=== PATIENT | male | born 1945 | race Caucasian/White ===

== ENCOUNTER → 2016-10-15 | Outpatient (CLI) | payer OTHER ==
[~2016-10-15] VITALS: Ht 172.7 cm; Wt 96.6 kg
[~2016-10-15] MED LIST: ALBUTEROL0.63 MG/3 IH; ARICEPT 5 MG TAB5 MG PO; ENOXAPARIN100 MG/11 SUBQ; FENTANYL PA25 MCG/HR TRANSDERM; FLOMAX0.4 MG PO; LIPITOR10 MG PO; LOPERAMIDE 2 MG2 M1 PO; LOPRESSOR50 PO; METFORMIN HCL500 MG PO; NEURONTIN 300300 M1 PO; NORCO 10-325 T1 EACH PO; OMEPRAZOLE20 M2 PO; ROPINIROLE HCL2 MG PO; SEROQUEL 50 MG50 MG PO; STRIVERDI RESPIM4 GM IH; TESSALON PERLE100 MG PO; TUSNEL LIQUID3840 ML PO; UNICOMPLEX M TA1 TA1 PO; VITAMIN D1000 UNI1 PO; ZOLOFT100 MG PO
--- NOTE | ~2016-10-15 | HPC ---
[facility] [address] [place] [address] PAIN MANAGEMENT CONSULTATION Name: CLAUDE ZHU Room #: REG ABDOUL De Anda#: [id number] Admission: 10/15/16 Attend Phys: Harjeet Solares DO Discharge: Date of : 43 Report #: [id number] THIS REPORT FOR: //name// CC: ALESSANDRO Solares HISTORY OF PRESENT ILLNESS: The patient is a pleasant, yet unfortunate 70-year-old gentleman seen in consultation at the request of Dr. Jackson for assistance with management of acute and chronic pain concerns including back and right leg as well as possible metastatic pulmonary cancer pain issues. The patient has had chronic back pain for number of years. He unfortunately fell about 7 weeks ago sustaining fracture of the right mid foot, Lisfranc type injury. They briefly discussed surgery, but given comorbidities elected to simply treat without mobilization. He has a right lower extremity walking cast on presently. He has been taking hydrocodone for axial back pain 5/325 and Robaxin for some time. Following the most recent fracture, dose has been escalated to hydrocodone 10/325 2 tablets 4 times a day (equivalent 80 mg of morphine). Unfortunately, even with this, he still has pain that is 6 to 10 on a 0-10 visual analog scale, primary pain in the back as well as right leg. Concurrently with this patient was diagnosed in May with stage IV pulmonary carcinoma. He is essentially on palliative care at present. He had trialled initial chemotherapy with profound bone marrow depression. He said 3 treatments with Keytruda. He has been told he has a short-term to live. He is at terms with this though he does suffer from some situational and expected anxiety and depression. He has wisely decided to eschew any heroic efforts he is a DNR and wishes for palliative care presently. He is interested in continuing the Keytruda treatments to try and prolong any quality of life he may have. He states pain is exacerbated when he does his breathing exercises (primarily back pain). Describes continuous constant aching pain again rates anywhere from 6 to 10 on a 0-10 visual analog scale. The patient has smoked for 40 years and at this point, he is simply elected to continue smoking, does not drink alcohol to excess. He is , seen in the company of of 40+ years, who is very supportive. History of diabetes, treated with metformin, pulmonary disease uses albuterol and Tessalon Perles for pertussis, metoprolol for hypertension, history of coronary artery disease. Omeprazole for gastroesophageal reflux, tamsulosin for benign prostatic hypertrophy, does have some dyslipidemia for which he currently takes atorvastatin. He has been on donepezil for early Alzheimer's for 2 or 3 years. He has been on sertraline and Seroquel for chronic anxiety and depression for many years. Has some posttraumatic stress issues from [place]. He states he was injured in [place], where he served from 1967 to 1968, had a back injury at [address] [address] PAIN MANAGEMENT CONSULTATION Name: CLAUDE ZHU Room #: EDILIA De Anda#: [id number] Admission: 10/15/16 Attend Phys: Harjeet Solares DO Discharge: Date of : 43 Report #: [id number] that time, which was the dorys of his initial back pain. The patient has been retired for the past 15 years. He has been fairly non-functional since the foot fractured 6 weeks ago. Pain impact score is 43/70. PHYSICAL EXAMINATION: GENERAL: Reveals a pleasant 5 feet 8 inches, 213 pound gentleman. BMI is 32.4 kilograms per meter squared. VITAL SIGNS: Blood pressure 148/71, pulse is 68, respirations 16, oxygen saturation is 94%. GENERAL: Alert and oriented to person, place and time, judged to be a reasonable historian. Short term memory appears good. He is assisted with his for more details. HEENT: Pupils equal, reactive to light and accommodation. Extraocular muscles are intact. NECK: Thyroid is modestly enlarged, no nodules are noted. Upper extremity strength is preserved. Cervical range of motion is good. LUNGS: Show rhonchi bilaterally. HEART: Regular and rhythmical at this time. ABDOMEN: Shows a modestly endomorphic build. EXTREMITIES: Left lower extremity strength is 3-4/5 to all muscle groups tested. Again, wearing a right lower extremity walking cast. He is in a wheelchair and states he spends most of his time in the wheelchair. He is able to transfer with assistance, has a bedside commode. Right leg shows diminished strength to hip flexion, lower extremity extension. Some diffuse tenderness across the low back. No discrete trigger points are noted. ASSESSMENT: Chronic pain syndrome requiring complex medication management, axial back pain, metastatic lung cancer and now right Lisfranc mid foot injury. RECOMMENDATIONS: Long discussion with the patient and his today about trying to manage palliative care concerns both presently and down the road. He is taking gabapentin 300 mg 2 in the morning, 1 at noon and 1 at bedtime for neuropathic pain, uses Requip for restless leg 2 mg at bedtime, these seem reasonable. He is using fairly high dose short acting opiate, 20 mg of hydrocodone 4 times a day with dwindling efficacy. We elected to start a long acting opiate, will trial a transcutaneous patch such that if the patient starts to have any nausea secondary to future chemotherapy, he will not face with an issue of acute opiate withdrawal compounding this situation We will start with Duragesic 25 mcg q. 72 hours. We will have him decrease p.r.n. hydrocodone to one tablet q. 4h., after patches in place about 12 hours (takes 8 to 12 hours for steady state drug level). I will see him back in about 3 weeks for reevaluation. We may increase the Duragesic patch and/or try rotating to Roxanol all for breakthrough pain. Continue gabapentin and Requip. [address] [address] PAIN MANAGEMENT CONSULTATION Name: CLAUDE ZHU Room #: REG ABDOUL De Anda#: [id number] Admission: 10/15/16 Attend Phys: Harjeet Solares DO Discharge: Date of : 44 Report #: [id number] Thank you for allowing me to participate in the patient's care. I will keep you abreast of his progress. <ELECTRONICALLY SIGNED> By: Harjeet Solares DO 10/17/16 0932 [id number] 0816 Harjeet Solares DO /nt
[2016-10-15 13:00] VITALS: BP 148/71
== END | disposition home or self-care (01) ==
LOC: PAIN 07:29
DX: G89.4 Chronic pain syndrome (principal); M54.9 Dorsalgia, unspecified; C34.90 Malignant neoplasm of unspecified part of unspecified bronchus or lung; I10 Essential (primary) hypertension; I50.9 Heart failure, unspecified; E11.9 Type 2 diabetes mellitus without complications; F32.9 Major depressive disorder, single episode, unspecified; S93.324A Dislocation of tarsometatarsal joint of right foot, initial encounter; Z90.49 Acquired absence of other specified parts of digestive tract; Z98.890 Other specified postprocedural states; X58.XXXA Exposure to other specified factors, initial encounter; Y93.89 Activity, other specified; Y92.89 Other specified places as the place of occurrence of the external cause; Y99.8 Other external cause status

== ENCOUNTER → 2016-11-08 | Outpatient (CLI) | payer OTHER ==
[~2016-11-08] VITALS: Ht 172.7 cm; Wt 99.3 kg
[~2016-11-08] MED LIST changes: +ZANAFLEX4 MG PO
--- NOTE | ~2016-11-08 | HPC ---
[facility] [place] [address] PAIN MANAGEMENT CONSULTATION Name: CLAUDE ZHU Room #: REG ABDOUL De Anda#: [id number] Admission: 11/08/16 Attend Phys: Harjeet Solares DO Discharge: Date of : 44 Report #: [id number] THIS REPORT FOR: //name// CC: SHAE Solares HISTORY OF PRESENT ILLNESS: The patient is a 71-year-old gentleman, prior seen in the pain clinic in consultation 10/15/2016. Diagnosed with chronic pain syndrome, requiring complex medication management, axial back pain, metastatic lung cancer with right Lisfranc mid foot injury. At last visit, we have elected to start the patient on Duragesic 25 mcg q. 72 hours. We elected to have him decrease his hydrocodone from 2 tablets to one tablet q. 4 hours. The patient returns to pain clinic today for a prolonged visit. He was seen from 12:30 to 13:03. Greater than 50% of this 30+ minute visit was spent in counseling the patient. The patient was seen in the company of his , who is supportive. She notes that they had difficulty getting the patches and ultimately, just started them one week ago. He has had the patch now for about a week and notes he has been able to decrease his hydrocodone use by 50%, now taking one tablet every 4-6 hours, averaging about 4 a day. Primary pain complaint is mid back pain, along with the right foot. He is wearing his right foot walking boot. Notes subjective pain score is 2/10, but the pain is quite problematic with any movement of the upper extremity, movement of the trunk, or bending. The foot pain remains problematic with weightbearing, though this is improving. PHYSICAL EXAMINATION: Shows a 71-year-old gentleman, BMI is 33.3 kilograms per meter squared. Vital signs are stable as noted on the EMR. Cranial nerves 2-12 are grossly intact. Alert and oriented, though modest cognitive delay. Very tender in the thoracolumbar paravertebral muscle. Spasm was noted. Rotation and sidebending seem to significantly exacerbate pain. Lower extremity strength is generally symmetric again is in the aforementioned right lower extremity, walking cast. We reviewed the fact that opiate medications are being used to provide analgesia adequate to support activities of daily living, not attempting to achieve a specific pain score on the 0-10 Visual Analog Scale. The current opiate medications are providing sufficient analgesia to allow the patient to participate in activities of daily living. The patient is not exhibiting any aberrant behavior suggestive of drug diversion. The patient is not having any adverse reactions to medications. The patient is not suffering from daytime somnolence or mental acuity changes. The patient is managing opiate-induced constipation with appropriate lmga-wfy-ewhypjt agents and dietary considerations. The patient was counseled on concern for caution with operating [address] [address] PAIN MANAGEMENT CONSULTATION Name: CLAUDE ZHU Room #: REG VIDHYAAlberto De Anda#: [id number] Admission: 11/08/16 Attend Phys: Harjeet Solares DO Discharge: Date of : 44 Report #: [id number] a motor vehicle while using opiate medications. A physical exam was performed and the patient's functional status was evaluated. All patients with back pain were advised against the bed rest greater than 4 days and were advised to return to normal activities. Pain score assessment was noted and the treatment plan was reviewed with the patient. All current medications, both prescribed and OTC were reviewed and reconciled on the electronic medical record. Tobacco screening was accomplished and smoking cessation was advised when indicated. BMI was noted and diet/exercise modification was recommended for all patients following outside normal parameters. I reviewed with the patient today their responsibilities to safeguard prescription medications, reviewed their responsibility to utilize medications only as prescribed by the physician. They are to seek and receive pain medications only from 1 physician group ( [facility]). They are to use 1 pharmacy and keep the clinic informed if they change pharmacies. Their responsibilities include making followup visits in a timely fashion and to avoid abrupt discontinuation of medication usage. Their responsibilities further include bringing their medications (bottles from the pharmacy with residual pills) to the visit for possible confirmation of pill counts and the patient understands it is their responsibility to submit to random drug screens to ensure both that the medications prescribed are present, and that no other controlled substances are present. All prescriptions provided today were generated electronically. ASSESSMENT: Metastatic lung cancer, axial back pain, myofascial pain component, status post right mid foot, Lisfranc injury, requiring complex medication management. RECOMMENDATION: 1. Continue baseline medication unchanged, Duragesic 25 mcg q. 72 hours and hydrocodone 10/325 one tablet up to 4 times a day. I have taken the liberty of renewing these 2 prescriptions. Given the axial back pain with palpable spasm, we have elected to start the patient on tizanidine 4 mg up to t.i.d. for spasm. We talked about doing trigger point injections today to these large muscle groups. The patient, however, does have a PET scan scheduled for tomorrow to monitor his metastatic pulmonary cancer. I have elected to defer interventional therapy at this time for fear of causing any possible "red seaman" changes on the PET scan. I will be happy to see the patient next week for trigger point injections, if pain remains problematic despite the initiation of the tizanidine. Discharged in good and stable condition after a prolonged visit. Follow up in [facility] [address] [place] [address] PAIN MANAGEMENT CONSULTATION Name: CLAUDE ZHU Room #: REG ABDOUL De Anda#: [id number] Admission: 11/08/16 Attend Phys: Harjeet Solares DO Discharge: Date of : 43 Report #: [id number] about 6 weeks to evaluate efficacy of medication or early next week for trigger point injections. By: [id number] Harjeet Solares DO /nt
[2016-11-08 12:52] VITALS: BP 131/79
== END | disposition home or self-care (01) ==
LOC: PAIN 07:03
DX: C34.90 Malignant neoplasm of unspecified part of unspecified bronchus or lung (principal); G89.29 Other chronic pain; M54.9 Dorsalgia, unspecified; Z98.890 Other specified postprocedural states; M79.1 Myalgia; F17.200 Nicotine dependence, unspecified, uncomplicated

== ENCOUNTER → 2016-12-07 | Outpatient (CLI) | payer OTHER ==
[~2016-12-07] VITALS: Ht 172.7 cm; Wt 83.6 kg
[~2016-12-07] MED LIST changes: +DURAGESIC1 EAC2 TD; +REGLAN 10 MG TA10 MG PO
--- NOTE | ~2016-12-07 | HPC ---
[facility] [address] [place] [address] PAIN MANAGEMENT CONSULTATION Name: CLAUDE ZHU Room #: REG ABDOUL De Anda#: [id number] Admission: 12/07/16 Attend Phys: Harjeet Solares DO Discharge: Date of : 44 Report #: [id number] THIS REPORT FOR: //name// CC: SHAE Solares HISTORY OF PRESENT ILLNESS: The patient is a very pleasant 71-year-old gentleman, being treated for chronic pain syndrome, axial back pain, history of lung cancer, metastatic; history of right foot fracture (Lisfranc, midfoot) requiring complex medication management. At last visit 11/08/2016, we had started the patient on a Duragesic patch at 25 mcg q.72 hours (prescriptions written for q.48 hours) as the patient has occasionally had trouble keeping patches on. He is using them q.72 hours, but occasionally he will lose the patch, and I did not want him to have opiate withdrawal (continuing hydrocodone 10/325 ostensibly one tablet 4 a day). I started tizanidine up to 4 times a day for muscle spasm. The patient had some myofascial pain with trigger points noted at last visit, though we elected to postpone interventional therapy i.e. trigger points as he was getting a PET scan subsequent, and we did not want to have any "red herrings" i.e. hot spot that would show up on bone scan, secondary to the trigger point injection. The patient returns to the pain clinic today, seen in the company of his , who is supportive. We did have a prolonged visit today, greater than 25 minutes was spent counseling the patient and his . Unfortunately, the PET scan did show tumors in both lungs. They are continuing with some chemotherapeutic agents with the understanding that they will not necessarily prolong his life, but hopefully keep him little more comfortable. He does note that the foot fracture is actually healing. Today is the first time I have seen him in a normal shoe. States his pain is actually generally well controlled, subjective pain score is about 2/10 at present. Chronic low back pain and again the aforementioned right ankle, which is getting better. Constant aching and crushing pain. He notes exercises, cold weather, and lying flat seem to exacerbate his back pain. PHYSICAL EXAMINATION: Shows a pleasant 71-year-old gentleman, BMI is 28 kilograms per meter squared. Vital signs are stable as noted on the electronic medical record. He has continued to smoke despite counseling. Further discussion with the patient and his today. The tizanidine t.i.d. caused significant sedation, although he is taking one at night, and this seems [facility] [address] [place] [address] PAIN MANAGEMENT CONSULTATION Name: CLAUDE ZHU Room #: REG ABDOUL De Anda#: [id number] Admission: 12/07/16 Attend Phys: Harjeet Solares DO Discharge: Date of : 43 Report #: [id number] to be efficacious. Unfortunately, he is still taking a fairly aggressive load of hydrocodone, averaging about 7 in a 24-hour period. Again, he has some axial back pain, no discrete trigger points are noted at this time. This is different than last visit. Lower extremity strength is diminished, but improving. He is able to ambulate still antalgic with the right foot. We reviewed the fact that opiate medications are being used to provide analgesia adequate to support activities of daily living, not attempting to achieve a specific pain score on the 0-10 Visual Analog Scale. The current opiate medications are providing sufficient analgesia to allow the patient to participate in activities of daily living. The patient is not exhibiting any aberrant behavior suggestive of drug diversion. The patient is not having any adverse reactions to medications. The patient is not suffering from daytime somnolence or mental acuity changes. The patient is managing opiate-induced constipation with appropriate pwue-avk-rdltpnq agents and dietary considerations. The patient was counseled on concern for caution with operating a motor vehicle while using opiate medications. A physical exam was performed and the patient's functional status was evaluated. All patients with back pain were advised against the bed rest greater than 4 days and were advised to return to normal activities. Pain score assessment was noted and the treatment plan was reviewed with the patient. All current medications, both prescribed and OTC were reviewed and reconciled on the electronic medical record. Tobacco screening was accomplished and smoking cessation was advised when indicated. BMI was noted and diet/exercise modification was recommended for all patients following outside normal parameters. I reviewed with the patient today their responsibilities to safeguard prescription medications, reviewed their responsibility to utilize medications only as prescribed by the physician. They are to seek and receive pain medications only from 1 physician group ( [facility]). They are to use 1 pharmacy and keep the clinic informed if they change pharmacies. Their responsibilities include making followup visits in a timely fashion and to avoid abrupt discontinuation of medication usage. Their responsibilities further include bringing their medications (bottles from the pharmacy with residual pills) to the visit for possible confirmation of pill counts and the patient understands it is their responsibility to submit to random drug screens to ensure both that the medications prescribed are present, and that no other controlled substances are present. All prescriptions provided today were generated electronically. I did review an opiate consent to treat contract today. The patient singed this understanding his rights and responsibilities regarding this contract. We have elected to continue Duragesic but increased from 25-37 mcg i.e., adding a 12 mcg patch. I will continue to write for [facility]codone as [facility] write for all of his pain medications. We will limit him to [address] [address] PAIN MANAGEMENT CONSULTATION Name: CLAUDE ZHU Room #: REG ABDOUL Arce.#: [id number] Admission: 12/07/16 Attend Phys: Harjeet Solares DO Discharge: Date of : 43 Report #: [id number] tablets a day. Again, frequent short acting opiates tend to promote habituation and tolerance more rapidly. Also, it can expose him to an egregious amount of acetaminophen. With the increase in the Duragesic, hopefully we can limit the hydrocodone to one tablet 4 times a day. I took the liberty of writing for the aforementioned 12 mcg Duragesic patch (written as q.48 hours. Again, suggested that they use it q.72 hours, with simply providing a sufficient quantity such that, he will not have opiate withdrawal if he loses a patch), hydrocodone 10/325 up to 4 a day. See him back in 4 weeks to evaluate efficacy of medication changes. The patient was discharged in good and stable condition after a prolonged visit. <ELECTRONICALLY SIGNED> By: Harjeet Solares DO 12/10/16 0856 [id number] 1148 Harjeet Solares DO /donna
[2016-12-07 08:12] VITALS: BP 133/66
== END ==
LOC: PAIN 11-15 07:02
DX: G89.4 Chronic pain syndrome (principal); M54.9 Dorsalgia, unspecified; F17.200 Nicotine dependence, unspecified, uncomplicated; Z85.118 Personal history of other malignant neoplasm of bronchus and lung; Z98.890 Other specified postprocedural states; Z88.8 Allergy status to other drugs, medicaments and biological substances

== ENCOUNTER → 2017-01-04 | Outpatient (CLI) | payer OTHER ==
[~2017-01-04] VITALS: Ht 172.7 cm; Wt 91.4 kg
[~2017-01-04] MED LIST changes: +FENTANYL PA12 MCG/HR TD
[2017-01-04 10:49] VITALS: BP 135/77
== END | disposition home or self-care (01) ==
LOC: PAIN 06:54
DX: C78.00 Secondary malignant neoplasm of unspecified lung (principal); C80.1 Malignant (primary) neoplasm, unspecified; F17.200 Nicotine dependence, unspecified, uncomplicated

== ENCOUNTER → 2017-03-04 | Outpatient (CLI) | payer OTHER ==
[~2017-03-04] VITALS: Ht 172.7 cm; Wt 82.6 kg
[~2017-03-04] MED LIST changes: +Fentanyl Patch 12 Mc TRANSDERM; +Fentanyl Patch 25 Mc TRANSDERM; +MARINOL2.5 MG PO
--- NOTE | ~2017-03-04 | HPC ---
[facility] [address] [address] PAIN MANAGEMENT CONSULTATION Name: CLAUDE ZHU Room #: REG ABDOUL De Anda#: [id number] Admission: 03/04/17 Attend Phys: Harjeet Solares DO Discharge: Date of : 43 Report #: [id number] THIS REPORT FOR: //name// CC: SHAE Solares SUBJECTIVE: The patient is a very pleasant 71-year-old gentleman being treated for metastatic pulmonary carcinoma, axial back pain requiring high-risk complex medication management. When he was initially seen, he had had a right mid foot Lisfranc fracture; this has resolved. Ongoing chronic pain, axial back pain and now some nausea and epigastric pain. He has been stable on Duragesic at 25 mcg q.72 hours along with hydrocodone 10/325 up to 4 a day. He just finished radiation therapy to both lungs. They are planning another round of chemotherapy shortly. He has lost a little bit of weight, BMI is down from 32.4-27.7 kilograms per meter squared. Again, he was complaining of some epigastric pain and early satiety and nausea. PHYSICAL EXAMINATION: Otherwise, unremarkable. Again, BMI is down a little bit. Vital signs are stable. Alert and oriented to person, place and time, judged to be a reasonable historian. He is in a wheelchair with axial back pain. We reviewed the fact that opiate medications are being used to provide analgesia adequate to support activities of daily living, not attempting to achieve a specific pain score on the 0-10 Visual Analog Scale. The current opiate medications are providing sufficient analgesia to allow the patient to participate in activities of daily living. The patient is not exhibiting any aberrant behavior suggestive of drug diversion. The patient is not having any adverse reactions to medications. The patient is not suffering from daytime somnolence or mental acuity changes. The patient is managing opiate-induced constipation with appropriate rkth-kvc-kjxefca agents and dietary considerations. The patient was counseled on concern for caution with operating a motor vehicle while using opiate medications. A physical exam was performed and the patient's functional status was evaluated. All patients with back pain were advised against the bed rest greater than 4 days and were advised to return to normal activities. Pain score assessment was noted and the treatment plan was reviewed with the patient. All current medications, both prescribed and OTC were reviewed and reconciled on the electronic medical record. Tobacco screening was accomplished and smoking cessation was advised when indicated. BMI was noted and diet/exercise modification was recommended for all patients following outside normal parameters. I reviewed with the patient today their responsibilities to safeguard prescription medications, reviewed their responsibility to utilize medications only as prescribed by the physician. They are to seek and receive pain medications only from 1 physician group ([facility]). They are to use 1 pharmacy and keep the clinic informed if they change pharmacies. Their [address] [address] PAIN MANAGEMENT CONSULTATION Name: CLAUDE ZHU Room #: REG ABDOUL De Anda#: [id number] Admission: 03/04/17 Attend Phys: Harjeet Solares DO Discharge: Date of : 43 Report #: [id number] responsibilities include making followup visits in a timely fashion and to avoid abrupt discontinuation of medication usage. Their responsibilities further include bringing their medications (bottles from the pharmacy with residual pills) to the visit for possible confirmation of pill counts and the patient understands it is their responsibility to submit to random drug screens to ensure both that the medications prescribed are present, and that no other controlled substances are present. All prescriptions provided today were generated electronically. ASSESSMENT: Metastatic pulmonary cancer, axial back pain requiring high-risk complex medication management with a new component of some nausea and vomiting. RECOMMENDATION: Continue Duragesic at 37 mcg (one 25 mcg patch and one 12 mcg patch simultaneously), typically q.72 hours; however, I have written for q.48 hours as he has difficulty putting the patches on. Sometimes, he balls them up on his T-shirt when he moving closer or he has on occasion actually folded the patch on itself while trying to put it on. A slight increase in number of patches is to ensure that he does not run out and have opiate withdrawal. We have continued hydrocodone 10/325 up to 4 a day. Today, we have also elected to trial Marinol at a low dose 2.5 mg t.i.d. to help with nausea and anorexia. I wrote for 90 tablets with 1 refill. This is a schedule 3 opiate which should be renewable. We will follow up in 2 months for reevaluation. Obviously, I will be happy to see him earlier if needed for any medication alterations. <ELECTRONICALLY SIGNED> By: Harjeet Solares DO 03/06/17 [id number] Harjeet Solares DO /nt
[2017-03-04 14:21] VITALS: BP 124/61
== END ==
LOC: PAIN 07:28
DX: C78.00 Secondary malignant neoplasm of unspecified lung (principal); C80.1 Malignant (primary) neoplasm, unspecified; Z79.899 Other long term (current) drug therapy; F17.200 Nicotine dependence, unspecified, uncomplicated